=== PATIENT | male | born 1990 | race Hispanic/Latino ===

== ENCOUNTER 2017-12-13 11:48 | Emergency (ER) | payer OTHER ==
[2017-12-13 12:03] VITALS: TEMP 97; O2SAT 98
[2017-12-13] MEDS ORDERED: Albuterol-Ipratrop 3 mg / 0.5 (3 ml) UD INH STA (13:03)
[2017-12-13] MEDS ORDERED: MethylPREDNISolone 40 mg Vial IVP ONE (13:03)
[2017-12-13] MEDS ORDERED: Albuterol-Ipratrop 3 mg / 0.5 (3 ml) UD ONE (13:22)
--- NOTE | 2017-12-13 13:50 | RAD ---
HISTORY: chest pain/ r/o infiltrate COMPARISON: No prior. TECHNIQUE: Chest PA and lateral FINDINGS: LUNGS: No active pulmonary disease. PLEURA: No significant pleural effusion identified. No pneumothorax apparent. CARDIOVASCULAR: Normal. OSSEOUS STRUCTURES: No significant abnormalities. VISUALIZED UPPER ABDOMEN: Normal. OTHER FINDINGS: None. IMPRESSION: No active disease.
[2017-12-13 14:06] LABS: ALB/GLOB RATIO 1.4 (1.0-2.1); ALBUMIN 4.5 g/dL (3.5-5.0); ALT/SGPT 40 U/L (21-72); AST/SGOT 23 U/L (17-59); BLOOD UREA NITROGEN 15 mg/dl (9-20); CALCIUM 9.5 mg/dL (8.4-10.2); GFR AFRICAN-AMERICAN > 60; GFR NON-AFRICAN AMERICAN > 60
[2017-12-13 14:11] LABS: BASO % 0.2 % (0.0-2.0); EOS # 0.1 K/uL (0.0-0.7); EOS % 1.4 % (0.0-4.0); HEMOGLOBIN 15.2 g/dL (12.0-18.0); LYMPH # 0.7 K/uL (1.0-4.3); LYMPH % 8.3 % (20.0-40.0); MEAN CORPUSCULAR HEMOGLOBIN 29.8 pg (27.0-31.0); MEAN CORPUSCULAR HGB CONC 35.1 g/dL (33.0-37.0); MEAN PLATELET VOLUME 10.7 fl (7.2-11.7); MONO # 0.8 K/uL (0.0-0.8); MONO % 9.2 % (0.0-10.0); NEUT # 6.9 K/uL (1.8-7.0); NEUT % 80.9 % (50.0-75.0); PLATELET COUNT 166 K/uL (130-400); RED CELL DISTRIBUTION WIDTH 12.3 % (11.5-14.5); WHITE BLOOD COUNT 8.5 K/uL (4.8-10.8)
[2017-12-13 14:54] LABS: PROTHROMBIN TIME 11.2 Seconds (9.8-13.1)
[2017-12-13 14:55] LABS: PARTIAL THROMBOPLASTIN TIME 36.5 Seconds (25.6-37.1)
--- NOTE | 2017-12-13 15:32 | ED PDOC ---
HPI: Chest Pain Time Seen by Provider: 12/13/17 12:26 Chief Complaint (Nursing): Chest Pain Chief Complaint (Provider): Chest Pain History Per: Patient History/Exam Limitations: no limitations Onset/Duration Of Symptoms: Days (x2 days) Current Symptoms Are (Timing): Still Present Associated Symptoms: denies: Syncope Additional Complaint(s): 27 y/o male with past medical history of Tourettes syndrome presents to the ED complaining of chest congestion, nasal congestion, cough and general feelings of weakness since yesterday, after he arrived home from a [employer] this weekend. Admits using cocaine over the weekend. Denies syncope, hemoptysis, headache, orthopnea, leg pain/edema or any further medical complaints. PMD: Non-[facility] Provider Past Medical History Reviewed: Historical Data, Nursing Documentation, Vital Signs Vital Signs: Last Vital Signs Temp 97 F L 12/13/17 12:03 Pulse 80 12/13/17 12:03 Resp 17 12/13/17 12:03 BP 117/69 12/13/17 12:03 Pulse Ox 98 12/13/17 12:03 - Medical History Other PMH: Tourettes syndrome - Surgical History Other surgeries: Left rotator cuff - Family History Family History: States: Unknown Family Hx - Social History Current smoker - smoking cessation education provided: Yes (some days smoker) Alcohol: None Drugs: Cocaine, Other (Marijuana) - Immunization History Hx Tetanus Toxoid Vaccination: No Hx Influenza Vaccination: No Hx Pneumococcal Vaccination: No - Home Medications Home Medications: Ambulatory Orders Medication Instructions Recorded Fluticasone Nasal [Flonase] 1 actuation NS DAILY #1 spr 12/13/17 guaiFENesin [Robitussin] 100 mg PO TID #50 ml 12/13/17 - Allergies Allergies/Adverse Reactions: Allergies Allergy/AdvReac Type Severity Reaction Status Date / Time No Known Allergies Allergy Verified 12/13/17 11:51 Review of Systems ROS Statement: Except As Marked, All Systems Reviewed And Found Negative (As per HPI, otherwise negative) ENT: Positive for: Nose Discharge, Nose Congestion Cardiovascular: Positive for: Chest Pain (Chest wall pain) Respiratory: Positive for: Cough Physical Exam - Reviewed Nursing Documentation Reviewed: Yes Vital Signs Reviewed: Yes - Physical Exam Appears: Positive for: Non-toxic, No Acute Distress Head Exam: Positive for: ATRAUMATIC, NORMAL INSPECTION, NORMOCEPHALIC Skin: Positive for: Normal Color, Warm, Dry Eye Exam: Positive for: EOMI, Normal appearance, PERRL ENT: Positive for: Pharyngeal Erythema (mild), Other (Nares are boggy bilaterally and turbinates with edema) Neck: Positive for: Normal, Painless ROM, Supple Cardiovascular/Chest: Positive for: Regular Rate, Rhythm. Negative for: Murmur Respiratory: Positive for: Normal Breath Sounds. Negative for: Accessory Muscle Use, Respiratory Distress Gastrointestinal/Abdominal: Positive for: Normal Exam, Soft. Negative for: Tenderness Back: Positive for: Normal Inspection Extremity: Positive for: Normal ROM. Negative for: Deformity Neurologic/Psych: Positive for: Alert, Oriented (x3) - Laboratory Results Result Diagrams: 12/13/17 13:17 12/13/17 13:17 - ECG O2 Sat by Pulse Oximetry: 98 (RA) Pulse Ox Interpretation: Normal Medical Decision Making Medical Decision Making: Time: 12:26 Initial Impression: Chest pain and nasal congestion Plan: EKG CMP Troponin I CBC w/ differential PTT Prothrombin Time Chest x-ray Albuterol/Ipratropium 3ml INH SOLU-Medrol 60mg IVP Toradol 15mg IVP Peak flow pre/post tx Reevaluation Time: 13:48 Chest x-ray FINDINGS: LUNGS: No active pulmonary disease. PLEURA: No significant pleural effusion identified. No pneumothorax apparent. CARDIOVASCULAR: Normal. OSSEOUS STRUCTURES: No significant abnormalities. VISUALIZED UPPER ABDOMEN: Normal. OTHER FINDINGS: None. IMPRESSION: No active disease. --Labs are unremarkable --Patient showed improvement in symptoms after administration of Toradol, solumedrol and nebulizer Time: 15:30 Upon provider reevaluation patient is feeling better, is medically stable, and requires no further treatment in the ED at this time. Patient will be discharged homewith Rx for Flonase 1 actuation NS and Robitussin 100mg PO. Counseling was provided and all questions were answered regarding diagnosis and need for follow up with PMD and supportive care for nasal congestion. There is agreement to discharge plan. Return if symptoms persist or worsen. Clinical Impression: Chest congestion and cocaine abuse Scribe Attestation: Documented by Lucy Mcclure acting as a scribe for Wagner Bryant MD. MD Weber Attestation: All medical record entries made by the Scribe were at my direction and personally dictated by me. I have reviewed the chart and agree that the record accurately reflects my personal performance of the history, physical exam, medical decision making, and the department course for this patient. I have also personally directed, reviewed, and agree with the discharge instructions and disposition. Disposition - Clinical Impression Clinical Impression: Chest congestion, Cocaine abuse - Disposition Referrals: [facility] [Outside] Disposition: Routine/Home Disposition Time: 15:30 Condition: STABLE Additional Instructions: Use OTC claritin or geovani as directed. Avoid cocaine use. Return to ER for any worse or new symptoms. Prescriptions: Fluticasone Nasal [Flonase] 1 actuation NS DAILY #1 spr guaiFENesin [Robitussin] 100 mg PO TID #50 ml Instructions: Cocaine Use Disorder, Phenylephrine (Nasal), Cough, Runny Nose, and the Common Cold (DC), Guaifenesin and Phenylephrine Forms: [employer] (Uzbek)
[2017-12-13 15:49] VITALS: BP 110/70; PULSE 84; RESP 18
[2017-12-13 17:13] LABS: BANDS 3 % (0-2); EOSINOPHIL 1 % (0-7); LYMPHOCYTE 8 % (20-50); MONOCYTE 5 % (0-10); NEUTROPHIL 82 % (42-75); PLATELET ESTIMATE NORMAL (NORMAL); REACTIVE LYMPHOCYTES 1 % (0-0); TOTAL CELLS COUNTED 100
--- NOTE | 2017-12-14 11:25 | CARD ---
APPROVED REPORT EKG Measurement Heart [id number] <Conclusion> Normal sinus rhythm Normal ECG
== END 2017-12-13 15:31 | disposition home or self-care (01) ==
LOC: H.ER 11:48
DX: R07.89 Other chest pain (principal); R09.89 Other specified symptoms and signs involving the circulatory and respiratory systems; F14.10 Cocaine abuse, uncomplicated
CPT/HCPCS: 71046; 80053; 84484; 85025; 85610; 85730; 93005; 96374; 96375; 99283; J1885; J2920

== ENCOUNTER 2018-03-23 07:30 | Emergency (ER) | payer OTHER ==
[2018-03-23 07:36] VITALS: BP 117/70; PULSE 84; RESP 20; TEMP 98.5; O2SAT 97
[2018-03-23 07:37] VITALS: BMI 27.8
[2018-03-23] MEDS ORDERED: Sodium Chloride 0.9% 1,000 ML IV STA (07:47)
--- NOTE | 2018-03-23 07:49 | ED PDOC ---
HPI: Abdomen Time Seen by Provider: 03/23/18 07:36 History Per: Patient Onset/Duration Of Symptoms: Days (2) Current Symptoms Are (Timing): Still Present Severity: Moderate Pain Scale Rating Of: 3 Location Of Pain/Discomfort: RLQ, LLQ, Suprapubic Quality Of Discomfort: Unable To Describe Associated Symptoms: Chills, Nausea, Vomiting, Diarrhea. denies: Urinary Symptoms Exacerbating Factors: Food Alleviating Factors: None Additional Complaint(s): Lower abd pain assoc with nausea vomiting and diarrhea x 2 days. Occurred after eating eggs. Denies blood in stool or vomitus. Past Medical History Vital Signs: Last Vital Signs Temp 98.5 F 03/23/18 07:36 Pulse 84 03/23/18 07:36 Resp 20 03/23/18 07:36 BP 117/70 03/23/18 07:36 Pulse Ox 97 03/23/18 07:49 - Medical History Other PMH: Tourettes syndrome - Family History Family History: States: Unknown Family Hx - Immunization History Hx Tetanus Toxoid Vaccination: No Hx Influenza Vaccination: No Hx Pneumococcal Vaccination: No - Home Medications Home Medications: Ambulatory Orders Medication Instructions Recorded Fluticasone Nasal [Flonase] 1 actuation NS DAILY #1 spr 12/13/17 guaiFENesin [Robitussin] 100 mg PO TID #50 ml 12/13/17 Ciprofloxacin HCl [Cipro] 500 mg PO BID #20 tab 03/23/18 Dicyclomine [Dicyclomine HCl] 10 mg PO Q8 #10 cap 03/23/18 Metronidazole [Flagyl] 500 mg PO Q8 #30 tablet 03/23/18 - Allergies Allergies/Adverse Reactions: Allergies Allergy/AdvReac Type Severity Reaction Status Date / Time No Known Allergies Allergy Verified 12/13/17 11:51 Review of Systems ROS Statement: Except As Marked, All Systems Reviewed And Found Negative Constitutional: Positive for: Chills Gastrointestinal: Positive for: Nausea, Vomiting, Abdominal Pain, Diarrhea Neurological: Positive for: Headache Physical Exam - Reviewed Nursing Documentation Reviewed: Yes Vital Signs Reviewed: Yes - Physical Exam Appears: Positive for: Non-toxic, No Acute Distress Head Exam: Positive for: ATRAUMATIC, NORMAL INSPECTION, NORMOCEPHALIC Skin: Positive for: Normal Color, Warm, DRY Eye Exam: Positive for: EOMI, Normal appearance, PERRL ENT: Positive for: Normal ENT Inspection Neck: Positive for: Normal, Painless ROM Cardiovascular/Chest: Positive for: Regular Rate, Rhythm Respiratory: Positive for: CNT, Normal Breath Sounds Gastrointestinal/Abdominal: Positive for: Soft, Tenderness (lower quads bilat.) Back: Positive for: Normal Inspection Extremity: Positive for: Normal ROM Neurologic/Psych: Positive for: Alert, Oriented - Laboratory Results Result Diagrams: 03/23/18 08:24 03/23/18 08:03 - ECG O2 Sat by Pulse Oximetry: 97 Disposition - Clinical Impression Clinical Impression: Colitis - Patient ED Disposition Is Patient to be Admitted: No Counseled Patient/Family Regarding: Studies Performed, Diagnosis, Need For Followup, Rx Given - Disposition Referrals: Ana Maria MD [Medical Doctor] - Disposition: Routine/Home Disposition Time: 10:33 Condition: FAIR Prescriptions: Ciprofloxacin HCl [Cipro] 500 mg PO BID #20 tab Dicyclomine [Dicyclomine HCl] 10 mg PO Q8 #10 cap Metronidazole [Flagyl] 500 mg PO Q8 #30 tablet Instructions: Irritable Bowel Syndrome, Crohn's Disease in Adults, Ulcerative Colitis in Adults, Inflammatory Bowel Disease
[2018-03-23 08:21] LABS: CALCIUM 9.7 mg/dL (8.4-10.2); GFR NON-AFRICAN AMERICAN > 60
[2018-03-23 08:22] LABS: ALB/GLOB RATIO 1.4 (1.0-2.1); ALBUMIN 5.1 g/dL (3.5-5.0); ALT/SGPT 22 U/L (21-72); AST/SGOT 43 U/L (17-59); BLOOD UREA NITROGEN 15 mg/dl (9-20)
[2018-03-23 08:32] LABS: BASO % 0.3 % (0.0-2.0); EOS % 0.1 % (0.0-4.0); HEMOGLOBIN 14.6 g/dL (12.0-18.0); LYMPH # 0.4 K/uL (1.0-4.3); LYMPH % 3.8 % (20.0-40.0); MEAN CELL VOLUME 85.8 fl (80.0-94.0); MEAN CORPUSCULAR HEMOGLOBIN 30.2 pg (27.0-31.0); MEAN CORPUSCULAR HGB CONC 35.2 g/dL (33.0-37.0); MEAN PLATELET VOLUME 9.6 fl (7.2-11.7); MONO # 0.6 K/uL (0.0-0.8); MONO % 5.9 % (0.0-10.0); NEUT % 89.9 % (50.0-75.0); NRBC % 0.1 % (0.0-0.0); PLATELET COUNT 140 K/uL (130-400); RBC 4.84 Mil/uL (4.40-5.90); RED CELL DISTRIBUTION WIDTH 12.7 % (11.5-14.5); WHITE BLOOD COUNT 10.1 K/uL (4.8-10.8)
[2018-03-23] MEDS ORDERED: Sodium Chloride 0.9% 50 ML IV ONE (08:50)
[2018-03-23] MEDS ORDERED: Iohexol 300 100 ML IJ ONE (08:50)
[2018-03-23 09:11] LABS: BANDS 4 % (0-2); EOSINOPHIL 1 % (0-7); HYPOCHROMIC SLIGHT; LYMPHOCYTE 3 % (20-50); MICROCYTOSIS SLIGHT; MONOCYTE 6 % (0-10); NEUTROPHIL 86 % (42-75); PLATELET ESTIMATE NORMAL (NORMAL); TOTAL CELLS COUNTED 100
--- NOTE | 2018-03-23 10:20 | CT ---
Date of service: 03/23/2018 PROCEDURE: CT Abdomen and Pelvis with contrast HISTORY: Abdominal pain COMPARISON: None. TECHNIQUE: CT scan of the abdomen and pelvis was performed after administration of intravenous contrast. Oral contrast was not administered. Coronal and sagittal reformatted images were obtained. Contrast dose: 96 cc Omnipaque 300 Radiation dose: Total exam DLP = 596.30 mGy-cm. This CT exam was performed using one or more of the following dose reduction techniques: Automated exposure control, adjustment of the mA and/or kV according to patient size, and/or use of iterative reconstruction technique. FINDINGS: LOWER THORAX: The visualized lungs are clear. LIVER: Mild hepatomegaly and diffuse fatty liver. No gross lesion or ductal dilatation. GALLBLADDER AND BILE DUCTS: No calcified gallstones. PANCREAS: Normal in size with homogeneous enhancement. No gross lesion or ductal dilatation. SPLEEN: Mild splenomegaly. ADRENALS: No discrete nodules. KIDNEYS AND URETERS: Normal in size with homogeneous enhancement. No hydronephrosis. No solid mass. VASCULATURE: No aortic aneurysm. BOWEL: The small bowel loops are normal in caliber. There is apparent mild mural thickening in the descending and sigmoid colon and rectum. No bowel dilatation or obstruction APPENDIX: Normal appendix. PERITONEUM: No free fluid. No free air. LYMPH NODES: Prominent subcentimeter mesenteric lymph nodes are likely reactive. BLADDER: Grossly normal in appearance. REPRODUCTIVE: The prostate gland is normal in size. BONES: No acute fracture. Within normal limits for the patient's age. OTHER FINDINGS: None. IMPRESSION: Findings are most compatible with acute nonspecific infectious/inflammatory colitis and proctitis is involving the descending colon, sigmoid colon and rectum. No bowel obstruction, drainable fluid collection or free fluid. Reactive mesenteric adenopathy. Mild hepatosplenomegaly. Fatty liver.
== END 2018-03-23 10:50 | disposition home or self-care (01) ==
LOC: H.ER 07:30
DX: R19.7 Diarrhea, unspecified (principal); K52.9 Noninfective gastroenteritis and colitis, unspecified
CPT/HCPCS: 74177; 80053; 85025; 96374; 99283; J2405; J7030; Q9967

== ENCOUNTER 2018-09-18 17:38 | Emergency (ER) | payer OTHER ==
[2018-09-18 17:38] VITALS: BMI 27.8
[2018-09-18] MEDS ORDERED: Sodium Chloride 0.9% 1,000 ML IV STA (18:20)
--- NOTE | 2018-09-18 19:13 | ED PDOC ---
HPI: General Adult Time Seen by Provider: 09/18/18 18:03 Chief Complaint (Nursing): GI Problem Chief Complaint (Provider): GI Problem History Per: Patient History/Exam Limitations: no limitations Onset/Duration Of Symptoms: Days (x4 days ago) Additional Complaint(s): Meron Street is a 27 year old male with a past medical history of turrets syndrome, who presents to the emergency department complaining of nausea, light headedness and dizziness, onset x4 days ago. Patient initially states that symptoms are on and off but when asked again, stated they are constant. Patient states he was walking from the bathroom last night when he felt uneasy on his feet. Patient further admits to smoking marijuana last night and does not remember if he smoked today morning. He is unsure if symptoms are related because it is unclear if they appeared after he smoked. As per patient's family member in room, patient has drank pepto-bismol, yara and peppermint tea at home without relief. He further states that he feels chills and has leg weakness but denies having any localized weakness, numbness, tingling, vomiting, fever, diarrhea. PMD: no provider Past Medical History Reviewed: Historical Data, Nursing Documentation, Vital Signs Vital Signs: Last Vital Signs Temp 97.5 F L 09/18/18 17:53 Pulse 63 09/18/18 17:53 Resp 16 09/18/18 17:53 BP 114/76 09/18/18 17:53 Pulse Ox 98 09/18/18 17:53 - Medical History PMH: No Chronic Diseases - Surgical History Other surgeries: colonoscopy and endoscopy - Family History Family History: States: Unknown Family Hx - Immunization History Hx Tetanus Toxoid Vaccination: No Hx Influenza Vaccination: No Hx Pneumococcal Vaccination: No - Home Medications Home Medications: Ambulatory Orders Medication Instructions Recorded Fluticasone Nasal [Flonase] 1 actuation NS DAILY #1 spr 12/13/17 guaiFENesin [Robitussin] 100 mg PO TID #50 ml 12/13/17 Ciprofloxacin HCl [Cipro] 500 mg PO BID #20 tab 03/23/18 Dicyclomine [Dicyclomine HCl] 10 mg PO Q8 #10 cap 03/23/18 Metronidazole [Flagyl] 500 mg PO Q8 #30 tablet 08/22/18 Meclizine [Meclizine*] 25 mg PO Q6 PRN #30 tab 09/18/18 - Allergies Allergies/Adverse Reactions: Allergies Allergy/AdvReac Type Severity Reaction Status Date / Time No Known Allergies Allergy Verified 09/18/18 17:53 Review of Systems ROS Statement: Except As Marked, All Systems Reviewed And Found Negative Constitutional: Positive for: Chills, Weakness (legs). Negative for: Fever Cardiovascular: Positive for: Light Headedness Gastrointestinal: Positive for: Nausea Neurological: Positive for: Dizziness. Negative for: Weakness, Numbness Physical Exam - Reviewed Nursing Documentation Reviewed: Yes Vital Signs Reviewed: Yes - Physical Exam Appears: Positive for: Non-toxic, No Acute Distress Head Exam: Positive for: ATRAUMATIC, NORMOCEPHALIC Skin: Positive for: Normal Color, Warm, Dry Eye Exam: Positive for: Normal appearance, EOMI, PERRL. Negative for: Nystagmus ENT: Positive for: Normal ENT Inspection Neck: Positive for: Normal, Painless ROM, Supple Cardiovascular/Chest: Positive for: Regular Rate, Rhythm. Negative for: Murmur Respiratory: Positive for: Normal Breath Sounds. Negative for: Respiratory Distress Gastrointestinal/Abdominal: Positive for: Normal Exam, Soft. Negative for: Tenderness Back: Positive for: Normal Inspection. Negative for: L CVA Tenderness, R CVA Tenderness, Vertebral Tenderness Extremity: Positive for: Normal ROM. Negative for: Pedal Edema, Deformity Neurologic/Psych: Positive for: Alert, Oriented, Cerebellar Tests (normal), Gait (steady). Negative for: Motor/Sensory Deficits - Laboratory Results Result Diagrams: 09/18/18 19:18 09/18/18 19:18 - ECG O2 Sat by Pulse Oximetry: 98 (RA) Pulse Ox Interpretation: Normal - Progress Re-evaluation Time: 21:33 Condition: Re-examined, Improved Medical Decision Making Medical Decision Making: Time: 1820 Impression: Appears to be dizzy and have nausea Differential diagnosis includes but is not limited to periphery vertigo (PPV), Central vertigo due to brain mass, GEOGRAPHY HEAD, PCC deficiency, cardiac arrhythmia, dehydration, and substance abuse (marijuana related symptoms) Plan: --Head CT without contrast --EKG --Alcohol serum --CMP --lipase --troponin I --Uine drug screen --CBC with differential --Antivert 50 mg PO --sodium chloride 1,000 ml --Zofran inj 4 mg IV Time: 1950 CT Finding: FINDINGS: BRAIN No acute intraparenchymal hemorrhage. No mass lesion. No CT evidence for acute territorial infarct. No midline shift or extra-axial collections. VENTRICLES: No hydrocephalus. ORBITS: The orbits are unremarkable. SINUSES AND MASTOIDS: The paranasal sinuses and mastoid air cells are clear. BONES: No fracture. SOFT TISSUES: Unremarkable. IMPRESSION: No acute intracranial abnormality. Scribe Attestation: Documented by Glen Horne, acting as a scribe for Mattie Comer MD. Provider Scribe Attestation: All medical record entries made by the Scribe were at my direction and personally dictated by me. I have reviewed the chart and agree that the record accurately reflects my personal performance of the history, physical exam, medical decision making, and the department course for this patient. I have also personally directed, reviewed, and agree with the discharge instructions and disposition. Disposition - Clinical Impression Clinical Impression: Dizziness, Substance abuse - Patient ED Disposition Is Patient to be Admitted: No Doctor Will See Patient In The: Office Counseled Patient/Family Regarding: Studies Performed, Diagnosis, Need For Followup - Disposition Referrals: Bennett Almazan MD [Staff Provider] - Uri Palumbo MD [Staff Provider] - Disposition: Routine/Home Disposition Time: 21:34 Condition: GOOD Additional Instructions: MERON STRE[address], thank you for letting us take care of you today. Your provider was Mattie Comer MD and you were treated for DIZZINESS,NAUSEA. The emergency medical care you received today was directed at your acute symptoms. If you were prescribed any medication, please fill it and take as directed. It may take several days for your symptoms to resolve. Return to the Emergency Department if your symptoms worsen, do not improve, or if you have any other problems. Please contact your doctor or call one of the physicians/clinics you have been referred to that are listed on the Patient Visit Information form that is included in your discharge packet. Bring any paperwork you were given at discharge with you along with any medications you are taking to your follow up visit. Our treatment cannot replace ongoing medical care by a primary care provider outside of the emergency department. Thank you for allowing the [facility] team to be part of your care today. If you had an X-Ray or CT scan: A Radiologist will review the ED reading if any change in treatment is needed we will contact you. If you had a blood, urine, or wound culture: It will take several days for the results, if any change in treatment is needed we will contact you. If you had an STI test: It will take 48 hours for the results. Please call after 1 week if you have not heard back. Prescriptions: Meclizine [Meclizine*] 25 mg PO Q6 PRN #30 tab PRN Reason: Dizziness Instructions: Vertigo (a Type of Dizziness) Forms: [employer] (Spanish)
[2018-09-18 19:23] LABS: BASO % 0.8 % (0.0-2.0); EOS # 0.1 K/uL (0.0-0.7); EOS % 2.3 % (0.0-4.0); LYMPH # 1.5 K/uL (1.0-4.3); MEAN CELL VOLUME 84.5 fl (80.0-94.0); MEAN CORPUSCULAR HEMOGLOBIN 29.4 pg (27.0-31.0); MEAN CORPUSCULAR HGB CONC 34.8 g/dL (33.0-37.0); MEAN PLATELET VOLUME 9.5 fl (7.2-11.7); MONO # 0.4 K/uL (0.0-0.8); MONO % 8.2 % (0.0-10.0); NEUT # 3.2 K/uL (1.8-7.0); NEUT % 59.7 % (50.0-75.0); NRBC % 0.3 % (0.0-0.0); RBC 5.45 Mil/uL (4.40-5.90); WHITE BLOOD COUNT 5.3 K/uL (4.8-10.8)
[2018-09-18 19:42] LABS: ALB/GLOB RATIO 1.6 (1.0-2.1); ALBUMIN 4.9 g/dL (3.5-5.0); ALT/SGPT 46 U/L (21-72); AST/SGOT 30 U/L (17-59); BLOOD UREA NITROGEN 15 mg/dl (9-20); CALCIUM 9.8 mg/dL (8.4-10.2); GFR NON-AFRICAN AMERICAN > 60; LIPASE 48 U/L (23-300)
[2018-09-18 22:48] VITALS: BP 121/69; PULSE 61; RESP 15; TEMP 97.9; O2SAT 99
--- NOTE | 2018-09-19 08:35 | CT ---
Date of service: 09/18/2018 PROCEDURE: CT HEAD WITHOUT CONTRAST. HISTORY: Dizziness COMPARISON: None available. TECHNIQUE: Axial computed tomography images were obtained through the head/brain without intravenous contrast. Radiation dose: Total exam DLP = 829.97 mGy-cm. This CT exam was performed using one or more of the following dose reduction techniques: Automated exposure control, adjustment of the mA and/or kV according to patient size, and/or use of iterative reconstruction technique. FINDINGS: HEMORRHAGE: No intracranial hemorrhage. BRAIN: Maynard-white matter differentiation is preserved. There is a 1.8 x 1.8 x 2.4 cm CSF density lesion in the left paramedian posterior fossa with mild mass effect on the vermis and scalloping of the inner table of the occipital bone. There is no abnormal extra-axial fluid collection. There is no territorial infarction. The midline sagittal structures are normal. VENTRICLES: The ventricles are normal in size, shape and configuration. CALVARIUM: There is no calvarial fracture or extracranial soft tissue swelling. PARANASAL SINUSES: Predominantly clear. MASTOID AIR CELLS: Predominantly clear. OTHER FINDINGS: None. IMPRESSION: No acute intracranial abnormality. 1.8 x 1.8 x 2.4 cm CSF density lesion in the left paramedian posterior fossa with mild mass effect on the vermis and scalloping of the overlying occipital bone, the differential considerations include arachnoid cyst or large arachnoid granulation. MRI of the brain without and with intravenous contrast is recommended for further evaluation. A preliminary report was provided by [employer]. The final report is tagged to the PA review folder.
--- NOTE | 2018-09-19 16:13 | CARD ---
APPROVED REPORT Date of service: 09/18/2018 EKG Measurement Heart [id number] <Conclusion> Normal sinus rhythm Early repolarization Normal ECG
== END 2018-09-18 22:48 | disposition home or self-care (01) ==
LOC: H.ER 17:38
DX: R42 Dizziness and giddiness (principal); F12.90 Cannabis use, unspecified, uncomplicated; S09.90XA Unspecified injury of head, initial encounter; W19.XXXA Unspecified fall, initial encounter; Y93.01 Activity, walking, marching and hiking
CPT/HCPCS: 70450; 80053; 80320; 83690; 84484; 85025; 93005; 96361; 96365; 96375; 99284; J2405; J2765; J7030